=== PATIENT | male | born 1950 | race African-American/Black ===

== ENCOUNTER 2020-08-19 19:12 | Emergency (ER) | payer OTHER ==
[~2020-08-19] VITALS: Ht 172.7 cm; Wt 79.4 kg
[2020-08-19] MEDS ORDERED: BLOOD PRESSURE (19:28)
[2020-08-19] MEDS ORDERED: ASPIRIN EC81 M1 PO (19:29)
[2020-08-19] MEDS ORDERED: MEDROLDOSEPACK PO (20:18)
[2020-08-19] MEDS ORDERED: NORCO 5-325 TA1 EAC2 PO (20:18)
[2020-08-19] MEDS ORDERED: MOBIC7.5 MG PO (20:18)
[2020-08-19 20:26] VITALS: BP 128/76
== END 2020-08-19 20:27 | disposition home or self-care (01) ==
LOC: M.ERS 19:12
DX: M72.2 Plantar fascial fibromatosis (principal); E11.9 Type 2 diabetes mellitus without complications; I10 Essential (primary) hypertension; Z95.5 Presence of coronary angioplasty implant and graft